=== PATIENT | male | born 2000 | race Two or more races ===

== ENCOUNTER 2020-12-10 01:31 | Emergency (ER) | payer OTHER ==
[~2020-12-10] VITALS: Ht 180.3 cm; Wt 73.8 kg
[2020-12-10] MEDS ORDERED: CEPH500T PO (02:26)
[2020-12-10] MEDS ORDERED: HYDR-2759 PO (02:26)
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
[2020-12-10] MEDS ORDERED: HYDROcodone/APAP 7.5/325MG 1 TAB TABLET PO ONE (02:30)
--- NOTE | 2020-12-10 02:42 | RAD ---
Study: XR FINGER(S)_LEFT 2+VIEWS_RT Indication: Trauma. Comparison: None. Findings: Acute fracture at the tuft of the thumb distal phalanx distal displacement by under a millimeter. The re appears to be surrounding soft tissue injury potentially with involvement of the nailbed. No fract ure identified elsewhere. Alignment is maintained. Impression: Tuft fracture of the thumb distal phalanx with distal displacement of the fragment by less than a mil limeter. Presumably there is surrounding soft tissue injury but not well evaluated by radiography. Co rrelate for trauma to the nailbed which could indicate an open fracture prone to infection. No retain ed radiopaque foreign body. Electronically signed by: KOSTA URENA MD (12/10/2020 2:40 AM) [facility]
[2020-12-10] MEDS ORDERED: DIPH,PERTUSS(ACELL),TET VAC/PF 0.5 ML SYRINGE. VAX IM ONE (03:00)
[2020-12-10] MEDS ORDERED: CEPHALEXIN 250 MG CAPSULE PO ONE (03:00)
[2020-12-10 03:05] VITALS: BP 122/56
== END 2020-12-10 03:07 | disposition home or self-care (01) ==
LOC: ER 01:31
DX: S62.522A Displaced fracture of distal phalanx of left thumb, initial encounter for closed fracture (principal); S61.102A Unspecified open wound of left thumb with damage to nail, initial encounter; W23.0XXA Caught, crushed, jammed, or pinched between moving objects, initial encounter; Y93.89 Activity, other specified; Y92.89 Other specified places as the place of occurrence of the external cause; Y99.8 Other external cause status
CPT/HCPCS: 73140; 90471; 90715; 99283